=== PATIENT | female | born 1990 | race Caucasian/White ===

== ENCOUNTER 2019-03-17 23:01 | Emergency (ER) | payer SELFPAY ==
[2019-03-17 23:11] VITALS: TEMP 98.1; BMI 37.8
[2019-03-18] MEDS ORDERED: KETOROLAC TROMETHAMINE 30 MG/1 ML VIAL IVPUSH ONE (01:10)
[2019-03-18] MEDS ORDERED: SODIUM CHLORIDE 1,000 ML IV STA (01:10)
--- NOTE | 2019-03-18 01:10 | PDOC ---
History of Present Illness - General Chief Complaint: Pain Stated Complaint: PAIN Time Seen by Provider: 03/18/19 00:35 - History of Present Illness Initial Comments: 03/18/19 01:05 28 yo F with no significant pmh who p/w left flank pain radiating to LLQ abdomen. Pain progressively, longer in duration and worse in severity. Pain now aggravated with ambulation. LMP (03/14/19). with no significant pmh who p/w left flank pain. Patient reports two days of cramping flank pain radiating. Last BM x 2 days [employer]. Decreased PO intake. Patient denies BYRD, vision change, palpitations, cough, wheezing, orthopena, PND , leg swelling/pain, N/V, F,C, CP, SOB, urinary complaints, hematuria, BPR, vaginal bleeding/discharge/pruritus, diarrhea, constipation, lightheadedness, weakness, sensory changes. PMHx: as noted above Surgery: Denies h/o abdominal surgery ROS: as noted SHx: Denies Etoh, IVDA, tobacco use. Denies h/o STI, sexual activity. Allergies: NKDA Past History - Past Medical History Allergies/Adverse Reactions: Allergies Allergy/AdvReac Type Severity Reaction Status Date / Time No Known Allergies Allergy Verified 03/31/18 19:18 Home Medications: Ambulatory Orders Ibuprofen 800 mg PO TID PRN #18 tablet 04/01/18 Lidocaine 5% Patch [Lidoderm Patch -] 1 patch TP DAILY #7 patch 03/18/19 Asthma: No Cancer: No Cardiac Disorders: No CVA: No COPD: No - Suicide/Smoking/Psychosocial Hx Smoking History: Never smoked Review of Systems - Review of Systems Comments:: 03/18/19 01:14 GENERAL/CONSTITUTIONAL: No fever or chills. No weakness. HEAD, EYES, EARS, NOSE AND THROAT: No change in vision. No ear pain or discharge. No sore throat. CARDIOVASCULAR: No chest pain or shortness of breath RESPIRATORY: No cough, wheezing, or hemoptysis. GASTROINTESTINAL: No nausea, vomiting, diarrhea or constipation. GENITOURINARY: + Left flank pain. No dysuria, frequency, or change in urination. MUSCULOSKELETAL: No joint or muscle swelling or pain. No neck or back pain. SKIN: No rash NEUROLOGIC: No headache, vertigo, loss of consciousness, or change in strength/ sensation. ENDOCRINE: No increased thirst. No abnormal weight change HEMATOLOGIC/LYMPHATIC: No anemia, easy bleeding, or history of blood clots. ALLERGIC/IMMUNOLOGIC: No hives or skin allergy. *Physical Exam - Vital Signs Last Vital Signs Temp Pulse Resp BP Pulse Ox 98.1 F 71 20 135/79 99 03/17/19 23:07 03/17/19 23:07 03/17/19 23:07 03/17/19 23:07 03/17/19 23:07 - Physical Exam Comments: 03/18/19 01:14 GENERAL: Awake, alert, and fully oriented, in no acute distress HEAD: No signs of trauma, normocephalic, atraumatic EYES: PERRLA, EOMI, sclera anicteric, conjunctiva clear ENT: Auricles normal inspection, hearing grossly normal, nares patent, oropharynx clear without exudates. Moist mucosa NECK: Normal ROM, supple, no lymphadenopathy, JVD, or masses LUNGS: No distress, speaks full sentences, clear to auscultation bilaterally HEART: Regular rate and rhythm, normal S1 and S2, no murmurs, NDS, nontender, normoactive bowel sounds. No guarding, no rebound. No masses. Neg CVA ttp. EXTREMITIES : Normal inspection, Normal range of motion, no edema. No clubbing or cyanosis. NEUROLOGICAL: Cranial nerves II through XII grossly intact. Normal speech, normal gait, no focal sensorimotor deficits SKIN: Warm, Dry, normal turgor, no rashes or lesions noted ED Treatment Course - LABORATORY CBC & Chemistry Diagram: 03/18/19 01:20 03/18/19 01:20 Medical Decision Making - Medical Decision Making 03/18/19 01:12 28 yo F to left flank radiating to LLQ. Pain progressively, longer in duration and worse in severity. Vitals wnl, AF, A&Ox3. Physical exam unremarkable with left flank ttp. Possible nephrolithaisis. Non toxic appearing, afebrile, low suspicion pyelo. Will consider cystitis, colitis, diverticulitis. Ed Course: 03/18/19 03:01 Laboratory Tests 03/18/19 03/18/19 03/18/19 01:20 01:20 01:20 WBC 9.7 Hgb 13.5 Hct 39.8 Plt Count 221 Sodium 140 Potassium 3.9 BUN 12.9 Creatinine 0.8 Serum , Qual Negative Urine Color Urine Appearance Urine Blood Urine Nitrite Ur Leukocyte Esterase 03/18/19 02:00 WBC Hgb Hct Plt Count Sodium Potassium BUN Creatinine Serum , Qual Urine Color Yellow Urine Appearance Clear Urine Blood Negative Urine Nitrite Negative Ur Leukocyte Esterase Negative 03/18/19 05:00 CTAP: There is no right or left urinary tract stone or obstruction. No bowel obstruction or inflammation. Negative for diverticulitis or colitis. Normal appendix. No free intraperitoneal air or free fluid. Normal liver. No obvious gallbladder abnormalities. Normal spleen. Normal pancreas. Normal adrenal glands. Osseous structures are intact. Possible small 3.5 mm nodule right lung base laterally. Follow-up according to established criteria. Aniceto Huerta MD 03/18/2019 04:49 EST Patient stable for d/c with return precautions. Advised to f/u with PMD. *DC/Admit/Observation/Transfer Diagnosis at time of Disposition: Left flank pain - Discharge Dispostion Disposition: HOME Condition at time of disposition: Stable Decision to Admit order: No - Prescriptions Prescriptions: Lidocaine 5% Patch [Lidoderm Patch -] 1 patch TP DAILY #7 patch - Referrals - Patient Instructions Printed Discharge Instructions: DI for Flank Pain Additional Instructions: Please return to the emergency department with any new or worsening symptoms or concerns. Please follow up with your primary care physician within 72 hours. Can take Motrin 600 mg every 4-6 hours as needed for pain. - Post Discharge Activity Forms/Work/School Notes: Back to Work
[2019-03-18] MEDS ORDERED: KETOROLAC TROMETHAMINE 30 MG/1 ML VIAL ONE (01:15)
[2019-03-18 01:35] LABS: BASO % 0.7 % (0-2.0); EOS % 1.8 % (0-4.5); HEMATOCRIT 39.8 % (32.4-45.2); HEMOGLOBIN 13.5 GM/dL (10.7-15.3); LYMPH % 25.6 % (8-40); MCH 29.7 pg (25.7-33.7); MEAN CELL VOLUME 87.5 fl (80-96); MEAN PLT VOLUME 9.5 fl (7.5-11.1); MONO % 7.8 % (3.8-10.2); NEUT % 64.1 % (42.8-82.8); PLATELET COUNT 221 K/MM3 (134-434); RBC 4.55 M/mm3 (3.60-5.2); RDW 12.8 % (11.6-15.6); WHITE BLOOD COUNT 9.7 K/mm3 (4.0-10.0)
[2019-03-18 02:00] LABS: ALBUMIN 4.2 g/dl (3.4-5.0); BILIRUBIN,TOTAL 0.4 mg/dL (0.2-1); BLOOD UREA NITROGEN 12.9 mg/dL (7-18); CALCIUM 9.3 mg/dL (8.5-10.1); CREATININE 0.8 mg/dL (0.55-1.3); POTASSIUM 3.9 mmol/L (3.5-5.1); TOT PROT 7.6 g/dl (6.4-8.2)
[2019-03-18 02:19] LABS: URINE APPEARANCE CLEAR; URINE BILIRUBIN NEGATIVE (NEGATIVE); URINE COLOR YELLOW; URINE GLUCOSE (UA) NEGATIVE (NEGATIVE); URINE KETONE NEGATIVE (NEGATIVE); URINE LEUK ESTERASE NEGATIVE (NEGATIVE); URINE NITRITE NEGATIVE (NEGATIVE); URINE PROTEIN NEGATIVE (NEGATIVE); URINE UROBILINOGEN 0.2 mg/dL (0.2-1.0)
[2019-03-18 03:21] VITALS: BP 130/82; PULSE 60
--- NOTE | 2019-03-18 05:07 | PDOC ---
Documentation entered by Doretha Stapleton SCRIBE, acting as scribe for Neli Hodge DO. Neli Hodge DO: This documentation has been prepared by the Pieter barker Adrianna, SCRIBE, under my direction and personally reviewed by me in its entirety. I confirm that the documentation accurately reflects all work, treatment, procedures, and medical decision making performed by me. Attending Attestation - Resident Resident Name: José MiguelManuel - ED Attending Attestation I have performed the following: I have examined & evaluated the patient, The case was reviewed & discussed with the resident, I agree w/resident's findings & plan - HPI HPI: The patient is a 28 year old female, with no significant PMH, who presents to the ED for evaluation of left flank pain for 2 days. Patient notes the pain is constant, cramping, progressively worsening, exacerbated with walking, and radiates to the LLQ. She endorses associated decreased PO intake. LBM was 2 days ago and normal, and LMP was 4 days ago. Allergies: NKA, NKDA Surgical History: None reported Social History: Denies EtOH, tobacco, illicit drug use - Physicial Exam PE: Agree with resident exam - Medical Decision Making 03/18/19 05:06 28-year-old female with left-sided flank pain and no known history of trauma CT scan of the abdomen and pelvis shows no significant acute abnormality Labs and urinalysis were unremarkable Patient has moderate improvement after Toradol She will be discharged home with Lidoderm patches with primary care follow-up Patient given 2 days off of work and was told to avoid lifting or sudden twisting
--- NOTE | 2019-03-18 08:16 | EKG ---
Test Reason : Blood Pressure : / mmHG Vent. Rate : 058 BPM Atrial Rate : 058 BPM P-R Int : 166 ms QRS Dur : 092 ms QT Int : 440 ms P-R-T Axes : 056 087 047 degrees QTc Int : 431 ms SINUS BRADYCARDIA OTHERWISE NORMAL ECG WHEN COMPARED WITH ECG OF 31-MAR-2018 19:25, NO SIGNIFICANT CHANGE WAS FOUND Confirmed by SUGEY REY MD ([id number]) on 03/18/2019 8:16:31 AM Referred By: Confirmed By:SUGEY REY MD
== END 2019-03-18 05:40 | disposition home or self-care (01) ==
LOC: JER 23:01
PROC: 3E0333Z Introduction of Anti-inflammatory into Peripheral Vein, Percutaneous Approach (ICD-10-PCS; principal; 2019-03-17)
PROC: 3E0337Z Introduction of Electrolytic and Water Balance Substance into Peripheral Vein, Percutaneous Approach (ICD-10-PCS; 2019-03-17)
DX: R10.9 Unspecified abdominal pain (principal)
CPT/HCPCS: 36415; 74176-TC; 80053; 81003; 84703; 85025; 87086; 93005; 93010; 99282-25; J7030

== ENCOUNTER 2021-08-30 19:40 | Emergency (ER) | payer SELFPAY ==
[2021-08-30 20:21] VITALS: BP 134/82; PULSE 86; TEMP 98.9; BMI 37.6
[2021-09-01 14:10] LABS: SARS-CoV-2 NAA Not Detected (Not Detected)
== END 2021-08-30 22:45 | disposition home or self-care (01) ==
LOC: JER 19:40
DX: R42 Dizziness and giddiness (principal); R05.1 Acute cough; R51.9 Headache, unspecified
CPT/HCPCS: 71046-TC-FY; 93005; 93010; 99285-25; C9803; U0003; U0005

== ENCOUNTER 2021-09-28 19:03 | Emergency (ER) | payer SELFPAY ==
[2021-09-28 19:31] VITALS: BP 142/82; PULSE 85; TEMP 97.7; BMI 47.2
[2021-09-28 21:22] LABS: BASO % 0.5 % (0-2.0); EOS % 1.8 % (0-4.5); HEMATOCRIT 39.2 % (32.4-45.2); HEMOGLOBIN 13.1 GM/dL (10.7-15.3); LYMPH % 24.8 % (8-40); MCH 28.9 pg (25.7-33.7); MCHC 33.4 g/dl (32.0-36.0); MEAN CELL VOLUME 86.5 fl (80-96); MEAN PLT VOLUME 9.7 fl (7.5-11.1); NEUT % 63.9 % (42.8-82.8); PLATELET COUNT 234 10^3/uL (134-434); RBC 4.54 M/mm3 (3.60-5.2); RDW 13.3 % (11.6-15.6); WHITE BLOOD COUNT 9.2 K/mm3 (4.0-10.0)
[2021-09-28 21:28] LABS: HCG,QUALITATIVE URINE Negative
[2021-09-28 21:33] LABS: EPI CELLS 11 /uL (0-25.1); HYALINE CASTS 0 /uL (0-3.1); PH,URINE 7.5 (5.0-8.0); URINE APPEARANCE TURBID; URINE BACTERIA 178 /uL (0-1359); URINE BILIRUBIN NEGATIVE (NEGATIVE); URINE COLOR YELLOW; URINE GLUCOSE (UA) NEGATIVE (NEGATIVE); URINE KETONE NEGATIVE (NEGATIVE); URINE LEUK ESTERASE 1+ (NEGATIVE); URINE NITRITE NEGATIVE (NEGATIVE); URINE PROTEIN NEGATIVE (NEGATIVE); URINE RBC 9 /uL (0-23.9); URINE UROBILINOGEN 0.2 mg/dL (0.2-1.0); URINE WBC 21 /uL (0-25.8)
[2021-09-28] MEDS ORDERED: PSEUDOEPHEDRINE HCL 30 MG TABLET PO ONE (21:48)
[2021-09-28 21:51] LABS: CHLORIDE 107 mmol/L (98-107); SODIUM 140 mmol/L (136-145)
[2021-09-28 21:52] LABS: CALCIUM 9.3 mg/dL (8.5-10.1); GLUCOSE,RANDOM 71 mg/dL (74-106)
[2021-09-28 21:53] LABS: ALBUMIN 4.3 g/dl (3.4-5.0); ANION GAP 4 MMOL/L (8-16); BLOOD UREA NITROGEN 8.8 mg/dL (7-18); CO2 29 mmol/L (21-32)
[2021-09-28 21:55] LABS: SGPT/ALT 35 U/L (13-61)
[2021-09-28 21:56] LABS: CREATININE 0.7 mg/dL (0.55-1.3); SGOT/AST 17 U/L (15-37)
[2021-09-28] MEDS ORDERED: NAPROXEN 500 MG TABLET PO ONE (21:56)
[2021-09-28 21:58] LABS: BILIRUBIN,TOTAL 0.3 mg/dL (0.2-1); TOT PROT 7.6 g/dl (6.4-8.2)
[2021-09-28 21:59] LABS: ALK PHOS 77 U/L (45-117)
[2021-09-28] MEDS ORDERED: PSEUDOEPHEDRINE HCL 60 MG TABLET ONE (22:05)
[2021-09-28] MEDS ORDERED: NAPROXEN 500 MG TABLET ONE (22:05)
== END 2021-09-28 22:14 | disposition home or self-care (01) ==
LOC: JERFT 19:03
DX: N30.00 Acute cystitis without hematuria (principal); R07.89 Other chest pain
CPT/HCPCS: 36415; 80053; 81003; 84484; 84703; 85025; 87086; 93005; 93010; 99284-25

== ENCOUNTER 2022-04-18 13:36 | Emergency (ER) | payer OTHER ==
[2022-04-18 13:38] VITALS: BP 146/82; PULSE 71; RESP 18; TEMP 98; BMI 33.6
[2022-04-18 16:01] LABS: BASO % 0.8 % (0-2.0); EOS % 0.9 % (0-4.5); HEMATOCRIT 38.9 % (32.4-45.2); HEMOGLOBIN 13.3 GM/dL (10.7-15.3); MCH 29.7 pg (25.7-33.7); MCHC 34.3 g/dl (32.0-36.0); MEAN CELL VOLUME 86.5 fl (80-96); MEAN PLT VOLUME 10.4 fl (7.5-11.1); MONO % 6.9 % (3.8-10.2); NEUT % 67.4 % (42.8-82.8); PLATELET COUNT 209 10^3/uL (134-434); RDW 12.8 % (11.6-15.6); WHITE BLOOD COUNT 8.8 K/mm3 (4.0-10.0)
[2022-04-18 16:15] LABS: INR 1.09 (0.83-1.09); PROTHROMBIN TIME (PATIENT) 12.5 SEC (9.7-13.0)
[2022-04-18] MEDS ORDERED: METOCLOPRAMIDE HCL INJECTION 10 MG/2 ML VIAL IVPUSH ONE (16:18)
[2022-04-18] MEDS ORDERED: SODIUM CHLORIDE 0.9% 500 ML INFUS.BAG IV ONE (16:18)
[2022-04-18] MEDS ORDERED: KETOROLAC TROMETHAMINE 30 MG/1 ML VIAL IVPUSH ONE (16:18)
[2022-04-18] MEDS ORDERED: METOCLOPRAMIDE HCL INJECTION 10 MG/2 ML VIAL ONE (16:30)
[2022-04-18] MEDS ORDERED: KETOROLAC TROMETHAMINE 30 MG/1 ML VIAL ONE (16:30)
[2022-04-18 16:58] LABS: CALCIUM 8.9 mg/dL (8.5-10.1)
[2022-04-18 16:59] LABS: BLOOD UREA NITROGEN 9.9 mg/dL (7-18)
[2022-04-18 17:03] LABS: CREATININE 0.7 mg/dL (0.55-1.3)
[2022-04-18 17:05] LABS: TOT PROT 7.6 g/dl (6.4-8.2)
[2022-04-18 17:07] LABS: BILIRUBIN,TOTAL 0.3 mg/dL (0.2-1)
== END 2022-04-18 17:50 | disposition home or self-care (01) ==
LOC: JER 13:36
PROC: 3E0333Z Introduction of Anti-inflammatory into Peripheral Vein, Percutaneous Approach (ICD-10-PCS; principal; 2022-04-18)
PROC: 3E033GC Introduction of Other Therapeutic Substance into Peripheral Vein, Percutaneous Approach (ICD-10-PCS; 2022-04-18)
DX: G44.209 Tension-type headache, unspecified, not intractable (principal); R07.9 Chest pain, unspecified
CPT/HCPCS: 36415; 71046-TC-FY; 80053; 84484; 84703; 85025; 85379; 85610; 93005; 93010; 99284-25